=== PATIENT | male | born 1975 | race Two or more races ===

== ENCOUNTER 2021-01-05 11:18 | Outpatient (REF) | payer MEDICAID, SELFPAY ==
--- NOTE | ~2021-01-05 | XR_ITS ---
EXAMINATION: XR HAND, LEFT CLINICAL INFORMATION: Localized swelling, mass or lump COMPARISON: None TECHNIQUE: PA, lateral, and oblique views of the left hand. FINDINGS: Bone alignment is normal. No fracture or dislocation seen. Joint spaces are normal. There is a soft tissue swelling or mass adjacent to the radial volar DIP joint of the third finger. XR/XR hand LT min 3V IMPRESSION: Soft tissue swelling or mass adjacent to the radial and volar aspect of the DIP joint of the third finger.
== END 2021-01-05 11:19 | disposition home or self-care (01) ==
LOC: HO.XRAY 11:18
PROVIDERS: PCP Nurse Practitioner; Visit Provider Nurse Practitioner
DX: R22.32 Localized swelling, mass and lump, left upper limb (principal)
CPT/HCPCS: 73130

== ENCOUNTER → 2021-02-12 09:51 | Outpatient (BNVA) | payer MEDICAID, SELFPAY | PROVIDERS: PCP Nurse Practitioner; Referring Provider Nurse Practitioner; Visit Provider Surgery | DX: D17.1 Benign lipomatous neoplasm of skin and subcutaneous tissue of trunk (principal); R22.32 Localized swelling, mass and lump, left upper limb | CPT/HCPCS: 99202 ==

== ENCOUNTER 2021-03-12 13:51 | Outpatient (REF) | payer MEDICAID, SELFPAY ==
[2021-03-12 13:54] VITALS: BP 127/81; PULSE 83; RESP 16; TEMP 36.7; O2SAT 99; BMI 34.0
--- NOTE | 2021-03-12 14:27 | P.OP_ITS ---
Operative Note Operative Note Date of Service: 03/12/21 Narrative: Preop diagnosis: Lipoma, right hip Postop diagnosis: Lipoma right hip Procedure: Excision of lipoma, right hip under local anesthesia Surgeon: Chad Escobar MD [employer] Teacher: Cecilia [employer] student The patient is a 46-year-old male with note of a lipomatous mass on the right hip measuring about 4.5 cm long by about 2.5 cm wide. He understood the technique of excision under local anesthesia. Was aware of the risks, benefits, and alternatives Was brought to the operating room placed supine on table. A surgical time-out was done. The area of the lipoma on the right hip was prepped and draped in the usual sterile fashion. Lidocaine 1% was used to infiltrate the skin and subcutaneous tissue for local anesthesia. I made an incision in the skin overlying the lipoma using a blade 15. This was carried down through the full- thickness of skin and subcutaneous fat with sharp dissection using the blade as well as with scissors until I was able to visualize a lipoma. I sharply dissected the lipoma off the rest of the rest of subcutaneous layer until this was delivered and sent as a specimen. Irrigated the area of excision and closed the incision with full-thickness nylon 3-0 interrupted sutures. Dressings were applied and the procedure was completed The patient tolerated procedure well. There were no complications noted. Initial fine counts of sponges and instruments were correct. Estimated blood loss about 2 cc The patient wasthen given discharge instructions and will be seen in the office for follow-up for removal sutures.
[2021-03-12 14:28] VITALS: BP 122/82; PULSE 76; RESP 16; O2SAT 97
== END 2021-03-12 13:52 | disposition home or self-care (01) ==
LOC: HO.MS 13:51
PROVIDERS: PCP Nurse Practitioner; Visit Provider Surgery
PROC: (CPT 11406; principal; 2021-03-12 13:50)
DX: D17.1 Benign lipomatous neoplasm of skin and subcutaneous tissue of trunk (principal)
CPT/HCPCS: 11406; 88304

== ENCOUNTER 2021-03-18 08:40 | Outpatient (REF) | payer MEDICAID, SELFPAY ==
--- NOTE | ~2021-03-18 | XR_ITS ---
EXAMINATION: XR HAND, LEFT CLINICAL INFORMATION: Left hand pain. COMPARISON: Left hand radiographs dated 01/05/2021. TECHNIQUE: PA view of the left hand as well as oblique and lateral views of the left long finger. FINDINGS: Redemonstration of prominent soft tissue swelling along the volar and radial aspect of the 3rd distal phalanx, slightly increased when compared to the prior radiographs. No radiopaque foreign body or soft tissue calcification. No acute fracture or dislocation. No joint space narrowing or marginal osteophytes. No osseous erosion. XR/XR hand LT min 3V IMPRESSION: Slight interval increase of soft tissue swelling along the volar and radial aspect of the 3rd distal phalanx. No radiopaque foreign body, soft tissue calcification, or adjacent osseous abnormality.
== END 2021-03-18 08:41 | disposition home or self-care (01) ==
LOC: HO.HOSX 08:40
PROVIDERS: Visit Provider Orthopaedic Surgery
DX: M79.642 Pain in left hand (principal); R22.32 Localized swelling, mass and lump, left upper limb; M79.89 Other specified soft tissue disorders
CPT/HCPCS: 73130; 99202

== ENCOUNTER → 2021-03-23 15:03 | Outpatient (BNVA) | payer MEDICAID, SELFPAY | PROVIDERS: PCP Nurse Practitioner; Referring Provider Nurse Practitioner; Visit Provider Surgery | DX: Z48.817 Encounter for surgical aftercare following surgery on the skin and subcutaneous tissue (principal); Z87.2 Personal history of diseases of the skin and subcutaneous tissue | CPT/HCPCS: 99212 ==

== ENCOUNTER 2021-04-13 06:00 | Day surgery (SDC) | payer MEDICAID, SELFPAY ==
[2021-04-06 15:04] VITALS: BMI 32.9
--- NOTE | 2021-04-09 13:33 | P.CONAN_ITS ---
Documented by User: Kimberly Palm NP 04/09/21 13:33 HPI - Anesthesia Eval Consult details Narrative: 46yo M for Left Extensional Biopsy Middle Finger Mass PMFSH Active Problems Active Problems: All Active Problems (Updated 03/18/21 @ 13:46 by Janis Mcconnell MD) Mass of soft tissue of left upper extremity (Acute) Lipoma of flank (Acute) Finger mass, left (Acute) Past Medical History Medical History Finger mass, left Lipoma of flank Family History Family History Maternal Grandmother Stomach cancer Maternal Uncle Cancer of unknown origin Father Prostate cancer Surgical History Surgical History History of back surgery Status post excision of lipoma Social History Social History Alcohol intake: never Patient Tobacco Use Status: Current everyday Tobacco user Use of substances other than those prescribed or required for medical reasons: Yes Have you been hit, kicked, punched, or otherwise hurt by someone within the past year? If so, by whom?: No Are you DNR?: No Advance Directives: No Advance Directives Information Provided: Yes Recently lost weight without trying: No Nutrition Risks: No Nutritional Risk Current occupational status: employed Current occupation: right hand / [employer] Meds Allergies Allergy/AdvReac Type Severity Reaction Status Date / Time No Known Allergies Allergy Verified 03/23/21 15:27 Home Medications Medication Instructions Recorded Confirmed Last Taken Type No Known Home Meds 02/12/21 02/12/21 Unknown History Exam Exam Date and Time: April 09, 2021 1333 Height,Weight and Vital Signs: Height 5 ft 9 in Weight 101.151 kg Assessment and Plan Assessment Anesthesia Assessment: Chart Reviewed Documented by User: Naima Singh MD 04/13/21 07:21 [facility] Past Medical History Medical History Finger mass, left Lipoma of flank Functional capacity: independent ambulation Family History Family History Maternal Grandmother Stomach cancer Maternal Uncle Cancer of unknown origin Father Prostate cancer Family history of problems with anesthesia: No Surgical History Surgical History History of back surgery Status post excision of lipoma History of Problems with Anesthesia: No Social History Social History Alcohol intake: never Patient Tobacco Use Status: Current everyday Tobacco user Use of substances other than those prescribed or required for medical reasons: Yes Have you been hit, kicked, punched, or otherwise hurt by someone within the past year? If so, by whom?: No Are you DNR?: No Advance Directives: No Advance Directives Information Provided: Yes Recently lost weight without trying: No Nutrition Risks: No Nutritional Risk Current occupational status: employed Current occupation: [employer] Allergies Allergy/AdvReac Type Severity Reaction Status Date / Time No Known Allergies Allergy Verified 03/23/21 15:27 Home Medications Medication Instructions Recorded Confirmed Last Taken Type No Known Home Meds 02/12/21 02/12/21 Unknown History Exam Airway Mallampati Class: II TM Dist: >3cm Neck ROM: Full Heart: RRR Lungs: CTA Assessment and Plan Final Anesthetic Review Family History of Problems with Anesthesia: No History of Problems with Anesthesia: No ASA Class: II Final Preanesthetic Review: No Changes in Pt Med Stat Patient Risk: Low Procedure Risk: Low Anesthetic Plan Anesthetic Plan: GA Disposition: Standard PACU
[2021-04-13] VITALS (7 sets, daily range): BP systolic 132–169; BP diastolic 86–94; PULSE 65–81; RESP 16–18; TEMP 36.6; O2SAT 94–97; BMI 32.5
[2021-04-13] MEDS: Lactated Ringers 1,000 ML 100 ML IVCONT (06:43)
--- NOTE | 2021-04-13 07:46 | MHC.SHP ---
Pre-Procedural Eval Section A Date of Service: 04/13/21 The patient is an INPATIENT: No Changes since office visit: No Cold of Flu in the past 2 weeks, No New Medical Problems, No Changes in Medication and No Patient answered all questions The History & Physical has been completed within 30 days and I have reviewed it.: Yes Section B Chief Complaint: mass and lump upper limb Allergies: Allergies Allergy/AdvReac Type Severity Reaction Status Date / Time No Known Allergies Allergy Verified 03/23/21 15:27 Plan I have reviewed the history and physical and performed a pertinent physical examination on my patient. No changes have occurred unless specified.
--- NOTE | 2021-04-13 07:47 | W.PM.OPN ---
Operative Note Operative Note Date of Service: 04/13/21 Narrative: Operative Note Narrative: Preop diagnosis: Left middle finger soft tissue mass Postop diagnosis: Same Procedure: Left middle finger soft tissue mass excisional biopsy Surgeon: Janis Mcconnell MD Anesthesia: General Findings: Left middle fingers soft tissue mass consistent with giant cell tumor. Measures 2.2 cm by 1.5 cm by 1 cm Implants: None Tourniquet time: 27 minutes EBL: 5.0 ml Specimen: Left middle finger soft tissue mass sent for histopathology Drains: None Complications: None Disposition: Brought to the recovery room in stable condition Plan: Follow-up in 10-14 days for wound check, suture removal and to check pathology Indications: The patient is a 46 year old man with a left middle finger soft tissue mass . The risks and benefits of operative treatment, including but not limited to risk of damage to blood vessels, nerves, tendons, infection, recurrence, persistent pain or numbness, incomplete resolution of preoperative symptoms, or need for further surgery were discussed with the patient and they wished to proceed with surgery. Procedure: Once consent was obtained patient was brought back to the operating suite and placed in the operating table in a supine position. . Perioperative antibiotics and anesthesia was administered by the anesthesia team. A tourniquet was applied to the proximal aspect of the left upper extremity and the limb was prepped and draped in a standard surgical fashion. The limb was elevated exsanguinated with Esmarch bandage and the tourniquet inflated to 250 mm of mercury for a total tourniquet time of 27 minutes. A Lizette type incision was made over the volar aspect of the patient's left middle finger. The incision was made through the skin subcutaneous tissues using a 15. Blade. I then carefully dissected down to the level of the soft tissue mass and the flexor tendon sheath. Care was taken to protect the radial and ulnar neurovascular bundles. There was a large, ware, multi lobular soft tissue mass over the volar aspect of the left middle finger D IP joint. He was sitting superficial to the flexor tendon sheath and extended around the radial aspect of the finger with an extension over the dorsal radial aspect of the middle finger distal phalanx. Its appearance and texture was consistent with a giant cell tumor of tendon sheath. I carefully dissected the mass free from the surrounding soft tissues using tenotomy scissors. The mass was then removed and placed on the back table to be sent for histopathology. Again it measured about 2.2 cm x 1.5 cm x 1 cm in thickness. I then made a a 1.5 cm longitudinal incision over the dorsal radial aspect of the distal phalanx. More of the hand multi lobular appearing tumor was removed from just radial to the extensor tendon. This was also placed on the back table to be sent for histopathology. Once satisfied with our excision of all visible tumor the wound was copiously irrigated with normal saline and the tourniquet was deflated and hemostasis obtained with a brief period of local pressure The skin edges were reapproximated with 5-0 Prolene suture. Digital block was performed using some 0.5% plain Marcaine for postop pain control and a sterile dressing was applied. The patient appears to have tolerated the procedure well and with no complications. All digits were well vascularized conclusion of the case.
[2021-04-13] MEDS: Acetaminophen 325 MG TABLET 650 MG PO (09:19)
[2021-04-13] MEDS: oxyCODONE HCl Immed Release 5 MG TABLET PO (09:25)
--- NOTE | 2021-04-13 13:08 | HO.POSTANES ---
Post Anesthesia Evaluation Post Anesthesia Evaluation Vital Signs: Vital Signs Temp Pulse Resp BP Pulse Ox 04/13/21 09:55 97.8 F 76 16 160/88 H 97 04/13/21 09:40 65 16 169/93 H 94 04/13/21 09:25 75 16 163/91 H 95 04/13/21 09:20 76 16 134/91 H 94 04/13/21 09:15 72 16 132/94 H 95 04/13/21 09:10 97.8 F 81 16 136/91 H 96 04/13/21 06:16 98 F 77 18 133/86 96 Anesthesia: General LMA Mental Status: Awake (A) Nausea/Vomiting: None Hydration: Adequate Anesthesia-Related Issues: No Anes. Related Issues
== END 2021-04-13 11:03 | disposition home or self-care (01) ==
PROVIDERS: PCP Nurse Practitioner; Visit Provider Orthopaedic Surgery
PROC: (CPT 26111; principal; 2021-04-13 07:30)
DX: D48.1 Neoplasm of uncertain behavior of connective and other soft tissue (principal); M79.89 Other specified soft tissue disorders; R20.2 Paresthesia of skin; F17.200 Nicotine dependence, unspecified, uncomplicated
CPT/HCPCS: 26111; 88307; J0690; J1100; J1885; J2250; J2405; J3010

== ENCOUNTER → 2021-04-28 08:42 | Outpatient (BNVA) | payer MEDICAID, SELFPAY | PROVIDERS: PCP Nurse Practitioner; Visit Provider Orthopaedic Surgery | DX: D48.1 Neoplasm of uncertain behavior of connective and other soft tissue (principal) | CPT/HCPCS: 99212 ==

== ENCOUNTER 2021-05-12 07:51 | Emergency (ER) | payer OTHER, MEDICAID, SELFPAY ==
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
--- NOTE | ~2021-05-12 | XR_ITS ---
EXAMINATION: XR FOOT, LEFT CLINICAL INFORMATION: Left foot injury. COMPARISON: None TECHNIQUE: AP, lateral, and oblique views of the left foot. FINDINGS: There is no visible acute fracture, dislocation or subluxation seen. No bony abnormality. There is no soft tissue abnormality. XR/XR foot LT min 3V IMPRESSION: Unremarkable left foot exam.
[2021-05-12 07:55] VITALS: BP 121/75; PULSE 89; RESP 18; TEMP 36.6; O2SAT 98; BMI 31.7
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
[2021-05-12] MEDS: cephALEXin 500 MG CAPSULE PO (09:03)
== END 2021-05-12 10:21 | disposition home or self-care (01) ==
PROVIDERS: Emergency Provider Emergency Medicine; PCP Nurse Practitioner
DX: L03.032 Cellulitis of left toe (principal); M54.50 Low back pain, unspecified; Z79.899 Other long term (current) drug therapy
CPT/HCPCS: 72100; 73630; 99283; 99284

== ENCOUNTER 2022-01-28 07:55 | Outpatient (REF) | payer MEDICAID, SELFPAY ==
--- NOTE | 2022-01-28 08:01 | EEG_ITS ---
Bilateral median and ulnar motor and sensory studies were performed, bilateral radial and sensory studies were performed, and paraspinal muscles were tested. IMPRESSION: 1. [id number] bilateral median neuropathy across carpal tunnel. 2. Mild bilateral ulnar neuropathy across cubital tunnel. MD KATHY Palomares/MIMA / [id number]
== END 2022-01-28 07:56 | disposition home or self-care (01) ==
LOC: HO.NEURO 07:55
PROVIDERS: Visit Provider Nurse Practitioner
DX: R20.2 Paresthesia of skin (principal)
CPT/HCPCS: 95886; 95911

== ENCOUNTER → 2022-02-23 14:11 | Outpatient (BNVA) | payer MEDICAID, SELFPAY | PROVIDERS: PCP Nurse Practitioner; Visit Provider Orthopaedic Surgery | DX: G56.03 Carpal tunnel syndrome, bilateral upper limbs (principal); G56.23 Lesion of ulnar nerve, bilateral upper limbs | CPT/HCPCS: 99212 ==

== ENCOUNTER → 2022-05-04 15:09 | Outpatient (BNVA) | payer MEDICAID, SELFPAY | PROVIDERS: Visit Provider Orthopaedic Surgery | DX: G56.03 Carpal tunnel syndrome, bilateral upper limbs (principal); G56.23 Lesion of ulnar nerve, bilateral upper limbs | CPT/HCPCS: 99212 ==

== ENCOUNTER 2022-05-27 06:50 | Day surgery (SDC) | payer MEDICAID, SELFPAY ==
[2022-05-21 15:00] VITALS: BMI 29.5
--- NOTE | 2022-05-26 09:28 | P.CONAN_ITS ---
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) Carpal tunnel syndrome of left wrist (Acute) Carpal tunnel syndrome of right wrist (Acute) Cubital tunnel syndrome on left (Acute) Cubital tunnel syndrome on right (Acute) Lipoma of flank (Acute) Finger mass, left (Acute) Past Medical History Medical History Finger mass, left Heartburn Lipoma of flank Family History Family History Maternal Grandmother Stomach cancer Maternal Uncle Cancer of unknown origin Father Prostate cancer Family history of problems with anesthesia: No Surgical History Surgical History History of back surgery History of excision of mass Status post excision of lipoma History of Problems with Anesthesia: No Social History Social History Alcohol intake: never Patient Tobacco Use Status: Current everyday Tobacco user Tobacco use type: Cigarette Cigarettes Per Day: 10 Years Smoked: 30 Use of substances other than those prescribed or required for medical reasons: Yes Substance Use Frequency: Occasionally Have you been hit, kicked, punched, or otherwise hurt by someone within the past year? 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 Meds Allergies Allergy/AdvReac Type Severity Reaction Status Date / Time No Known Allergies Allergy Verified 05/04/22 15:27 Home Medications Medication Instructions Recorded Confirmed Last Taken Type famotidine 20 mg tablet 20 mg PO BID heartburn 02/23/22 04/28/22 Unknown History ibuprofen 600 mg tablet 1 tab PO BID PRN pain 04/28/22 04/28/22 Unknown History methylphenidate HCl 18 mg 1 tab PO QAM 04/28/22 04/28/22 Unknown History tablet,extended release 24 hr (Concerta) nicotine (polacrilex) 4 mg gum 1 gum PO NEEDED 04/28/22 04/28/22 Unknown History Exam Exam Date and Time: May 26, 2022 0928 Height,Weight and Vital Signs: Height 5 ft 9 in Weight 90.718 kg Assessment and Plan Assessment Anesthesia Assessment: Chart Reviewed Final Anesthetic Review Family History of Problems with Anesthesia: No History of Problems with Anesthesia: No Documented by User: Michael Sandhu MD 05/27/22 08:32 [facility] Past Medical History Medical History Finger mass, left Heartburn Lipoma of flank Family History Family History Maternal Grandmother Stomach cancer Maternal Uncle Cancer of unknown origin Father Prostate cancer Surgical History Surgical History History of back surgery History of excision of mass Status post excision of lipoma Social History Social History Alcohol intake: never Patient Tobacco Use Status: Current everyday Tobacco user Tobacco use type: Cigarette Cigarettes Per Day: 10 Years Smoked: 30 Use of substances other than those prescribed or required for medical reasons: Yes Substance Use Frequency: Occasionally Have you been hit, kicked, punched, or otherwise hurt by someone within the past year? 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 Meds Allergies Allergy/AdvReac Type Severity Reaction Status Date / Time No Known Allergies Allergy Verified 05/04/22 15:27 Home Medications Medication Instructions Recorded Confirmed Last Taken Type famotidine 20 mg tablet 20 mg PO BID heartburn 02/23/22 04/28/22 Unknown History ibuprofen 600 mg tablet 1 tab PO BID PRN pain 04/28/22 04/28/22 Unknown History methylphenidate HCl 18 mg 1 tab PO QAM 04/28/22 04/28/22 Unknown History tablet,extended release 24 hr (Concerta) nicotine (polacrilex) 4 mg gum 1 gum PO NEEDED 04/28/22 04/28/22 Unknown H istory Exam Airway Mallampati Class: II TM Dist: >3cm Neck ROM: Full Loose/Missing/Broken Teeth: No Heart: [id number] Lungs: cta b/l Assessment and Plan Assessment Anesthesia Assessment: Anesthesia Plan Discussed Final Anesthetic Review NPO: Yes ASA Class: II Final Preanesthetic Review: No Changes in Pt Med Stat, Meds/Allgs Chart Reviewed, Consent Obtained/Reviewed and Anes Risks/Benef Reviewed Patient Risk: Intermediate Procedure Risk: Intermediate Assessment/Block/Sedation in SS: Assess/Block/Sedation-SS Anesthetic Plan Anesthetic Plan: GA and Agree w/ Assess. and Plan Disposition: Standard PACU
[2022-05-27] VITALS (12 sets, daily range): BP systolic 113–132; BP diastolic 78–90; PULSE 53–76; RESP 16–20; TEMP 36.2–36.9; O2SAT 95–97
[2022-05-27] MEDS: Lactated Ringers 1,000 ML 100 ML IVCONT (07:17)
--- NOTE | 2022-05-27 08:48 | MHC.SHP ---
Pre-Procedural Eval Section A Date of Service: 05/27/22 The patient is an INPATIENT: No Changes since office visit: No Cold of Flu in the past 2 weeks, No New Medical Problems, No Changes in Medication and No Patient answered all questions The History & Physical has been completed within 30 days and I have reviewed it.: Yes Section B Chief Complaint: Carpal tunnel syndrome, lesion of ulnar nerve Allergies: Allergies Allergy/AdvReac Type Severity Reaction Status Date / Time No Known Allergies Allergy Verified 05/04/22 15:27 Plan I have reviewed the history and physical and performed a pertinent physical examination on my patient. No changes have occurred unless specified. Time Spent With Patient Time: Total time managing care of this patient today ____ minutes.
--- NOTE | 2022-05-27 08:48 | W.PM.OPN ---
Operative Note Operative Note Date of Service: 05/27/22 Narrative: Operative Note Narrative: Preop diagnosis: 1. Left Cubital tunnel syndrome 2. Left carpal tunnel syndrome Postop diagnosis: Same Procedure: 1. Left Cubital Tunnel Release 2. Left carpal tunnel release Surgeon: Janis Mcconnell MD Anesthesia: General Anesthesia Findings: Thickening and fibrosis about the ulnar nerve at the cubital tunnel Implants: none Tourniquet time: 30 minutes EBL: 5.0 ml Specimen: none Drains: None Complications: None Disposition: Brought to the recovery room in stable condition Plan: Follow-up in 10-14 days for wound check, and suture removal Indications: The patient is 47 years old with left cubital tunnel syndrome and left carpal tunnel syndrome . The risks and benefits of operative treatment, including but not limited to risk of damage to blood vessels, nerves, tendons, infection, recurrence, persistent pain or numbness, incomplete resolution of preoperative symptoms, or need for further surgery were discussed with the patient and they wished to proceed with surgery. Procedure: Once consent was obtained patient was brought back to the operating suite and placed in the operating table in a supine position. Perioperative antibiotics and anesthesia was administered by the anesthesia team. The limb was prepped and draped in a standard surgical fashion, and a sterile tourniquet applied to the proximal aspect of the left upper extremity. The limb was elevated exsanguinated with Esmarch bandage and the tourniquet inflated to 250 mm of mercury for a total tourniquet time of 30 minutes. Once assured that we had a good block, a 2.0 cm longitudinal incision was made centered over the left carpal tunnel. The incision was made through the skin to the subcutaneous tissues using a #15 blade. Dissection was made down to the level of the transverse carpal ligament with care being taken to protect the palmar cutaneous nerve. Once the transverse carpal ligament was clearly visualized, a longitudinal incision was made in the transverse carpal ligament 1st using a #15 blade, then using tenotomy scissors under direct visualization. Care was taken to look for and protect the motor branch of the median nerve when seen in this area. Once satisfied with our carpal tunnel release the wound was irrigated with normal saline. A 6 cm gently curved but longitudinally oriented incision was made centered over the cubital tunnel of the left upper extremity. Incision was made through the skin to the subcutaneous tissues using a # 15 Blade. I then dissected down to the level of the medial epicondyle and the cubital tunnel using tenotomy scissors. Care was taken to protect the lateral antebrachial cutaneous nerve. The ulnar nerve was identified just posterior to the medial intermuscular septum. The ulnar nerve was released in a proximal to distal direction using tenotomy in iris scissors while directly visualizing and protecting the ulnar nerve. Thickening and fibrosis was appreciated about the ulnar nerve as it passed through the cubital tunnel. The ulnar nerve was assessed as I passed the elbow through full flexion and extension and was found to remain stable within its groove. At this point the tourniquet was deflated and hemostasis obtained with a brief period of local pressure and bipolar electrocautery. The wound was copiously irrigated with normal saline. The subcutaneous layer was closed with 4-0 Vicryl suture, and the skin edges were reapproximated with 4-0 nylon suture. The wound was infiltrated with some 0.25% plain Marcaine for postop pain control and sterile dressings were applied. The patient appears to have tolerated the procedure well and with no complications. All digits were well vascularized conclusion of the case.
[2022-05-27] MEDS: Acetaminophen 325 MG TABLET 650 MG PO (10:11)
[2022-05-27] MEDS: oxyCODONE HCl Immed Release 5 MG TABLET 10 MG PO (10:12)
[2022-05-27] MEDS: fentaNYL citrate/PF 100 MCG/2 ML VIAL 50 MCG IVPUSH ×3 (10:13→10:32)
== END 2022-05-27 11:42 | disposition home or self-care (01) ==
PROVIDERS: Visit Provider Orthopaedic Surgery
PROC: (CPT 64721; principal; 2022-05-27 08:40)
PROC: (CPT 64718; 2022-05-27 08:40)
DX: G56.02 Carpal tunnel syndrome, left upper limb (principal); G56.22 Lesion of ulnar nerve, left upper limb; Z98.890 Other specified postprocedural states; F17.210 Nicotine dependence, cigarettes, uncomplicated
CPT/HCPCS: 64721; 64718; J0690; J1885; J2405; J2795; J3010

== ENCOUNTER → 2022-06-09 13:12 | Outpatient (BNVA) | payer MEDICAID, SELFPAY | PROVIDERS: Visit Provider Orthopaedic Surgery | DX: Z13.89 Encounter for screening for other disorder (principal) ==

== ENCOUNTER → 2022-08-25 15:17 | Outpatient (BNVA) | payer MEDICAID, SELFPAY | PROVIDERS: Visit Provider Orthopaedic Surgery | DX: G56.21 Lesion of ulnar nerve, right upper limb (principal); M79.641 Pain in right hand; M79.642 Pain in left hand; M25.641 Stiffness of right hand, not elsewhere classified; M25.642 Stiffness of left hand, not elsewhere classified | CPT/HCPCS: 99212 ==

== ENCOUNTER 2023-05-29 17:21 | Emergency (ER) | payer OTHER, SELFPAY ==
--- NOTE | ~2023-05-29 | XR_ITS ---
EXAMINATION: XR WRIST, LEFT XR HAND, LEFT CLINICAL INFORMATION: Fall, pain COMPARISON: None available. TECHNIQUE: PA, lateral, and oblique views of the left wrist and PA, lateral, and oblique views of the left hand FINDINGS: LEFT WRIST: The bones and soft tissues are normal. No fracture. Alignment is anatomic. Joint spaces are maintained. No erosions or soft tissue calcifications. LEFT HAND: The bones and soft tissues are normal. No fracture. Alignment is anatomic. Joint spaces are maintained. No erosions or soft tissue calcifications. XR/XR hand wrist LT IMPRESSION: Normal left hand and wrist.
[2023-05-29 17:47] VITALS: BP 139/92; PULSE 87; RESP 18; TEMP 36.9; O2SAT 97; BMI 30.9
--- NOTE | 2023-05-29 17:51 | ED.EXTPRO ---
HPI - Extremity Problem General Chief complaint: Extremity Injury, Upper Stated complaint: work inj, bent hand backwards with fall Time Seen by Provider: 05/29/23 19:26 Source: patient Mode of arrival: ambulatory Limitations: no limitations History of Present Illness HPI Narrative: Patient is a 48 year old male right-hand dominant who presents emergency department for evaluation after work related injury today; a fall on left outstretched hand, resulting in pain, localized swelling. Denies numbness tingling or cold sensation to the hand. Reports history of prior surgery to this hand last year for carpal tunnel syndrome. Related Data Home Medications Medication Instructions Recorded Confirmed famotidine 20 mg tablet 20 mg PO BID heartburn 02/23/22 04/28/22 ibuprofen 600 mg tablet 1 tab PO BID PRN pain 04/28/22 04/28/22 methylphenidate HCl 18 mg 1 tab PO QAM 04/28/22 04/28/22 tablet,extended release 24 hr (Concerta) nicotine (polacrilex) 4 mg gum 1 gum PO NEEDED 04/28/22 04/28/22 Allergies Allergy/AdvReac Type Severity Reaction Status Date / Time No Known Allergies Allergy Verified 08/25/22 15:34 Review of Systems Review of Systems: Yes all other systems are reviewed and are negative PMFSH Past Medical History Attestation statement: The following information was validated with the patient. Source: old records reviewed Medical History Heartburn Lipoma of flank Finger mass, left Surgical History History of excision of mass Status post excision of lipoma History of back surgery Family History Family History (Reviewed 06/09/22 @ 13:40 by Carmen Kaplan [facility]) Maternal Grandmother Stomach cancer Maternal Uncle Cancer of unknown origin Father Prostate cancer Social History Social History Alcohol intake: never Patient Tobacco Use Status: Current everyday Tobacco user Tobacco use type: Cigarette Cigarettes Per Day: 10 Years Smoked: 30 Advance Directives: No Advance Directives Information Provided: No Current occupational status: employed 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 No acute distress.?Normal affect. Neck: Normal inspection.? Neck supple.?? CVS: Heart sounds normal. Normal heart rate and rhythm.? Pulses normal.?? Respiratory: No respiratory distress.? Lung sounds clear to auscultation bilaterally?? Abdomen: Soft and non-tender. Normoactive bowel sounds. Skin: Skin warm and dry.? Normal skin color.? Extremities: Noextremity edema.? Left wrist and hand without acute deformity, no snuffbox tenderness, full AROM intact. Neuro: Moves all extremities spontaneously. Sensation intact bilaterally. Ambulates with normal steady gait. Medical Decision Making Medical Decision Making MDM Narrative: Patient is a 48-year-old male presents emergency department for evaluation traumatic left hand/wrist pain as per HPI. Extremities neurovascularly intact distally. No acute deformity. XR imaging was obtained which reveals no acute fracture or dislocation. Advised rest, ice, Robe bandage for compression, elevation, acetaminophen/ibuprofen for pain. Advised outpatient follow-up with workman's Comp/primary care provider for persistent symptoms. Provided with a return to work note. All questions answered. Stable for discharge. Differential Diagnosis Differential Diagnoses: The differential diagnosis associated with the presentation includes (As noted above) Admission/Observation Consideration of admission/observation: Escalation of care including admission/observation considered (See narrative above) Independent Interpretation I performed an independent interpretation of an: Plain X-Ray (I personally interpreted XR imaging and agree with radiologist impression.) Radiology Impression Discussion of test interpretation with radiology: I have reviewed the radiologist's reading. Radiologist Impression: XR/XR hand wrist LT IMPRESSION: Normal left hand and wrist. Independent Historian Clinical information obtained from an independent historian. History obtained from or confirmed by: Spouse External Record Review External record reviewed: Outpatient record Prescription Management I considered prescription management with: Pain Medication (Acetaminophen/ibuprofen) Discharge Plan Discharge Clinical Impression: Sprain of left wrist Patient Disposition: Home, Self-Care Instructions: How to Use an Elastic Bandage (ED), R.I.C.E. Treatment (ED), Wrist Sprain (ED) Additional Instructions: You can take ibuprofen 200 mg, 3 tablets (600mg) every 6-8 hours as needed for pain, in addition to Tylenol 500 mg, 2 tablets (1,000mg) every 4-6 hours as needed for pain, but not to exceed 3 doses daily (3,000mg).? Prescriptions: No Action nicotine (polacrilex) 4 mg gum 1 gum PO NEEDED ibuprofen 600 mg tablet 1 tab PO BID PRN (Reason: pain) methylphenidate HCl [Concerta] 18 mg tablet extended release 24hr 1 tab PO QAM famotidine 20 mg tablet 20 mg PO BID Referrals: [facility] [Primary Care Provider] - Stand Alone Forms: Work/School Release
== END 2023-05-29 19:49 | disposition home or self-care (01) ==
PROVIDERS: Emergency Provider Emergency Medicine
DX: S63.502A Unspecified sprain of left wrist, initial encounter (principal); W18.30XA Fall on same level, unspecified, initial encounter; Y93.9 Activity, unspecified; Y92.9 Unspecified place or not applicable; Y99.0 Civilian activity done for income or pay
CPT/HCPCS: 73110; 73130; 99282; 99283

== ENCOUNTER 2023-08-11 09:22 | Outpatient (REF) | payer MEDICAID, SELFPAY ==
[2023-08-11 14:02] LABS: MANUAL DIFF FLAG NO
[2023-08-11 14:07] LABS: Basophils Percent Auto 0.5 % (0-2); Eosinophils Absolute Auto 0.2 X10*3/uL (0.0-0.4); Eosinophils Percent Auto 2.3 % (0-4); Hematocrit 43.5 % (42.0-52.0); Hemoglobin 14.4 g/dl (14.0-18.0); Imm Gran Abs Auto 0.02 X10*3/uL (0.00-0.03); Imm Gran Pct Auto 0.3 % (0.0-0.4); Lymphocytes Absolute Auto 2.1 X10*3/uL (1.2-4.9); Lymphocytes Percent Auto 31.9 % (20-40); Mean Corpuscular HGB Conc 33.1 g/dl (31.0-36.0); Mean Corpuscular Hemoglobin 28.3 pg (27.0-33.0); Mean Corpuscular Volume 85.6 fL (80.0-98.0); Mean Platelet Volume 10.6 fL (9.4-12.4); Monocytes Absolute Auto 0.6 X10*3/uL (0.1-1.2); Monocytes Percent Auto 9.2 % (2-11); Neutrophils Absolute Auto 3.6 x10*3/uL (2.0-8.3); Neutrophils Percent Auto 55.8 % (45-73); Platelet Count 330 X10*3/uL (160-400); Red Blood Count 5.08 X10*6/uL (4.60-5.80); Red Cell Distribution Width 12.8 % (11.0-16.0); White Blood Count 6.4 X10*3/uL (4.8-10.8)
[2023-08-11 14:42] LABS: Rheumatoid Factor < 13.0 IU/mL (<15.0)
[2023-08-11 14:44] LABS: Erythrocyte Sedimentation Rate 4 MM/HR (0-15)
[2023-08-11 14:57] LABS: Alanine Aminotransferase 27 U/L (0-40); Albumin Level 4.2 g/dL (3.5-5.0); Alkaline Phosphatase 71 U/L (39-117); Anion Gap 11 (12-20); Aspartate Amino Transferase 16 U/L (5-37); Bilirubin Total 0.3 mg/dL (0.0-1.0); Blood Urea Nitrogen 15 mg/dL (9-16); C Reactive Protein 0.26 mg/dL (< or = 0.50); Calcium 9.2 mg/dL (8.4-10.2); Carbon Dioxide 24 mmol/L (22-29); Chloride 108 mmol/L (96-108); Cholesterol 170 mg/dL (<200); Estimated Glomerular Filt Rate > 60; Glucose Random 87 mg/dL (60-115); HDL Cholesterol 44 mg/dL (>40); LDL Cholesterol Calculated 107 mg/dL (<100); Potassium 3.6 mmol/L (3.3-5.1); Sodium 139 mmol/L (135-145); Total Protein 7.3 g/dL (6.5-8.0); Triglycerides 97 mg/dL (<150)
[2023-08-11 15:05] LABS: TSH reflex Free T4 0.19 uIU/mL (0.32-4.0)
[2023-08-11 16:50] LABS: Free T4 (Free Thyroxine) 0.94 ng/dL (0.71-1.85)
[2023-08-12 21:14] LABS: Follicle Stimulating Hormone 2.7 mIU/mL (1.4-12.8); Lutenizing Hormone 3.1 mIU/mL (1.5-9.3); Prolactin 3.9 ng/mL (2.0-18.0)
[2023-08-17 11:23] LABS: Cyclic Citrullinated Peptide <16 UNITS
[2023-08-18 11:14] LABS: Testosterone, Free 48.6 pg/mL (35.0-155.0); Testosterone, Total 426 ng/dL (250-1100)
== END 2023-08-11 09:23 | disposition home or self-care (01) ==
LOC: HO.CHCLDS 09:22
PROVIDERS: Visit Provider Internal Medicine
DX: N52.8 Other male erectile dysfunction (principal); M79.89 Other specified soft tissue disorders; E66.9 Obesity, unspecified
CPT/HCPCS: 36415; 80053; 80061; 83001; 83002; 84146; 84402; 84403; 84439; 84443; 85025; 85652; 86140; 86200; 86431

== ENCOUNTER 2023-08-11 10:31 | Outpatient (REF) | payer MEDICAID, SELFPAY ==
--- NOTE | ~2023-08-11 | US_ITS ---
EXAMINATION: US EXTREMITY, NONVASCULAR CLINICAL INFORMATION: Palpable area in the right axilla. COMPARISON: None available. TECHNIQUE: Real-time ultrasound of the right axilla was performed with high- frequency vick-scale imaging and color Doppler. FINDINGS: Ultrasound the palpable area in the right axilla indicated by the patient demonstrates a 1.3 x 1.5 x 0.7 cm well-defined heterogeneous mass with cystic components without associated vascularity. US/US extremity nonvascular IMPRESSION: Palpable area in the right axilla indicated by the patient corresponds to a 1.5 cm heterogeneous mass. This is of uncertain etiology. Further evaluation such as CT scan or MRI scan should be considered.
== END 2023-08-11 10:32 | disposition home or self-care (01) ==
LOC: HO.HMGCX 10:31
PROVIDERS: PCP Internal Medicine; Visit Provider Internal Medicine
DX: L72.3 Sebaceous cyst (principal)
CPT/HCPCS: 36415; 76882; 80053; 80061; 83001; 83002; 84146; 84402; 84403; 84439; 84443; 85025; 85652; 86140; 86200; 86431